=== PATIENT | male | born 1930 ===

== ENCOUNTER 2019-06-02 05:41 | Day surgery (SDC) | payer MEDICARE, BC ==
[~2019-06-02] VITALS: Ht 180.3 cm; Wt 99.8 kg
[2019-06-02] VITALS (12 sets, daily range): BP systolic 104–154; BP diastolic 50–85
[2019-06-02] MEDS ORDERED: ATENOLOL25 MG ORAL (06:36)
[2019-06-02] MEDS ORDERED: VITAMIN E100 UNI2 ORAL (06:36)
[2019-06-02] MEDS ORDERED: PRILOSEC OTC20 MG ORAL (06:36)
[2019-06-02] MEDS ORDERED: COSENTYX (150 MG/1 M SQ (06:36)
[2019-06-02] MEDS ORDERED: MULTIVITAMINS1 EAC2 ORAL (06:36)
[2019-06-02] MEDS ORDERED: COUMADIN5 MG ORAL (06:36)
[2019-06-02] MEDS ORDERED: ASPIR 8181 MG ORAL (06:36)
[2019-06-02] MEDS ORDERED: LOSARTAN POTASS25 M1 PO (06:36)
[2019-06-02] MEDS ORDERED: SIMVASTATIN20 MG ORAL (06:36)
[2019-06-02] MEDS ORDERED: Phenylephrine 10mg/ml Vial ONE (06:38)
[2019-06-02] MEDS ORDERED: Rocuronium Bromide 50mg/5ml Inj IV ONE (06:45)
[2019-06-02] MEDS ORDERED: Succinylcholine 20mg/ml 10ml vial ONE (06:45)
[2019-06-02] MEDS ORDERED: NeoSporin Gu Irrig 1ml Amp IRRIG ONE (06:48)
[2019-06-02] MEDS ORDERED: Ropivacaine 5mg/ml Vial 30ml INJ ONE ×2 (06:48→06:53)
[2019-06-02] MEDS ORDERED: Lidocaine 1% 10mg/ml/Epi 0.005mg/ml 30ml vial INJ ONE (06:48)
[2019-06-02] MEDS ORDERED: Bacitracin 50000 Units Vial ONE (06:48)
[2019-06-02] MEDS ORDERED: Lidocaine 1% MPF 10mg/ml 5ml ONE (06:50)
[2019-06-02] MEDS ORDERED: fentaNYL 100 mcg/2 mL IV ONE (06:57)
[2019-06-02] MEDS ORDERED: Tylenol #3 tab (300mg/30mg) ORAL PRN (07:00)
[2019-06-02] MEDS ORDERED: Neostigmine 1mg/ml 10ml Inj ONE (07:00)
[2019-06-02] MEDS ORDERED: LR 1000ml ONE (07:00)
[2019-06-02] MEDS ORDERED: D5 1/2NS 1,000 ML IV SCH (07:00)
[2019-06-02] MEDS ORDERED: HYDROmorphone 1mg/ml Carpuject SUBQ PRN (07:00)
[2019-06-02] MEDS ORDERED: Sterile Water Irrig 1000ml IRRIG ONE (07:00)
[2019-06-02] MEDS ORDERED: Propofol 200mg/20ml IV ONE (07:00)
[2019-06-02] MEDS ORDERED: HYDROcodone/Acetamin 5/325 tab ORAL PRN (07:00)
--- NOTE | 2019-06-02 07:05 | Pre-Procedure Note/Attestation ---
Pre-Procedure Note/Attestation Complete Prior to Procedure Planned Procedure: left Procedure Narrative: Left proximal humerus open reduction with internal fixation Indications for Procedure Pre-Operative Diagnosis: Left proximal humerus fracture Attestation I attest that I discussed the nature of the procedure; its benefits; risks and complications; and alternatives (and the risks and benefits of such alternatives ), prior to the procedure, with the patient (or the patient's legal roofing sales representative). I attest that, if there was a reasonable possibility of needing a blood transfusion, the patient (or the patient's legal roofing sales representative) was given the [facility] standardized written summary, pursuant to the Noe Anand Blood Safety Act ([place] Health and Safety Code # 1645, as amended). I attest that I re-evaluated the patient just prior to the surgery and that there has been no change in the patient's H&P, except as documented below: Minor Patino MD Jun 02, 2019 07:05
[2019-06-02] MEDS ORDERED: NS Irrig 1000ml IRRIG ONE (07:50)
[2019-06-02] MEDS ORDERED: LR 1000ml 1,000 ML IVLG SCH (08:33)
--- NOTE | 2019-06-02 08:33 | Anethesia Preoperative Eval ---
Anesthesia Pre-op PMH/ROS General Date of Evaluation: Jun 02, 2019 Time of Evaluation: 07:02 Anesthesiologist: Prasanna ASA Score: ASA 3 Mallampati Score Class I : Soft palate, uvula, fauces, pillars visible Class II: Soft palate, uvula, fauces visible Class III: Soft palate, base of uvula visible Class IV: Only hard plate visible Mallampati Classification: Class II Surgeon: Sukumar Diagnosis: L humerus Fx Surgical Procedure: ORIF of L humerus Fx Anesthesia History: none Social History: smoking - h/o Family History: no anesthesia problems Allergies: Coded Allergies: LATEX (Verified Allergy, Mild, itching , 06/02/19) SULFA (SULFONAMIDE ANTIBIOTICS) (Verified Allergy, Unknown, itching, ) Medications: see eMAR Patient NPO?: Yes Past Medical History Cardiovascular: Reports: HTN, CAD - stable, arrhythmia - AF ; Denies: [place], valve dz, other Pulmonary: Denies: asthma, COPD, ANAM, other Gastrointestinal/Genitourinary: Reports: GERD; Denies: CRI, ESRD, other Neurologic/Psychiatric: Reports: depression/anxiety; Denies: dementia, CVA, TIA, other Endocrine: Reports: hypothyroidism; Denies: DM, steroids, other HEENT: Denies: cataract (L), cataract (R), glaucoma, [place] (L), [place] (R), other Hematology/Immune: Reports: anemia - mild, bleeding disorder - anticoagulated off coumadin for 7 days; Denies: DVT, other Musculoskeletal/Integumentary: Reports: OA; Denies: RA, DJD, DDD, edema, other PMH Narrative: as above PSxH Narrative: coronary stents, cholecystectomy Anesthesia Pre-op Phys. Exam Physician Exam Last Vital Signs Date Time Temp Pulse Resp B/P (MAP) Pulse Ox O2 Delivery O2 Flow Rate FiO2 06/02/19 06:40 Room Air 06/02/19 06:11 98.0 60 18 147/85 97 Constitutional: NAD Neurologic: CN 2-12 intact Cardiovascular: RRR, no M/R/G, other - IIR Respiratory: CTA Gastrointestinal: S/NT/ND Airway Exam Mallampati Score: Class II MO: limited Neck: stiff ROM: limited Teeth: missing Dentures: no upper, no lower Anesthesia Pre-op A/P Labs Coagulation Test 06/02/19 06:10 Prothrombin Time 10.6 SEC (9.30-11.50) Prothromb Time International Ratio 1.0 (0.9-1.1) Activated Partial Thromboplast Time 24 SEC (23-33) Risk Assessment & Plan Assessment: ASA 3 Plan: GA with ETT, L brachial plexus block for postop pain control Status Change Before Surgery: No Pre-Antibiotics Drug: Ancef 1gr. Given Within 1 Hr of Incision: Yes Time Given: 08:02 Abram Mims MD Jun 02, 2019 08:32
[2019-06-02] MEDS ORDERED: Morphine Sulfate 10mg/ml Inj ONE (08:38)
[2019-06-02] MEDS ORDERED: Glycopyrrolate 0.2mg/ml 1ml Vial ONE ×2 (08:39→08:42)
[2019-06-02] MEDS ORDERED: Sodium Chloride 10ml vial INJ ONE (08:39)
[2019-06-02] MEDS ORDERED: Acetaminophen (Non formulary) 100 ML IV ONE (08:45)
[2019-06-02] MEDS ORDERED: DiphenhydrAMINE 50mg/ml Inj IVP PRN (08:45)
[2019-06-02] MEDS ORDERED: Ketorolac 30mg Inj IV PRN (08:45)
[2019-06-02] MEDS ORDERED: Hydromorphone 0.5mg/0.5ml inj IVP PRN (08:45)
--- NOTE | 2019-06-02 09:41 | Brief Operative Note ---
Immediate Post Operative Note Operative Note Pre-op Diagnosis: Left proximal humerus fracture Procedure: Left proximal humerus fracture ORIF Post-op Diagnosis: Left proximal humerus fracture Post-op Diagnosis: same as pre-op Findings: consistent w/pre-op dx studies Surgeon: Sukumar Anesthesia: general, regional Specimen: none Complications: none Condition: stable Fluids: 100 ml Estimated Blood Loss: minimal Drains: none Implant(s) used?: Yes Minor Patino MD Jun 02, 2019 09:40
--- NOTE | 2019-06-02 09:53 | Immediate Post-Op Evaluation ---
Immediate Post-Op Evalulation Immediate Post-Op Evalulation Procedure: ORIF of L humerus Fx. Date of Evaluation: Jun 02, 2019 Time of Evaluation: 09:52 IV Fluids: 1000 Blood Products: none Estimated Blood Loss: 100 Urinary Output: none Blood Pressure Systolic: 104 Blood Pressure Diastolic: 62 Pulse Rate: 72 Respiratory Rate: 20 O2 Sat by Pulse Oximetry: 98 Temperature (Fahrenheit): 97.4 Pain Score (1-10): 1 Nausea: No Vomiting: No Complications none Patient Status: reacts, patent, extubated, none Hydration Status: adequate Abram Mims MD Jun 02, 2019 09:53
--- NOTE | 2019-06-02 11:20 | 48 Hour Post Anesthesia Eval ---
Post Anesthesia Evaluation Procedure: ORIF of L humerus Fx. Date of Evaluation: Jun 02, 2019 Time of Evaluation: 11:19 Blood Pressure Systolic: 116 0: 72 Pulse Rate: 62 Respiratory Rate: 18 Temperature (Fahrenheit): 97.6 O2 Sat by Pulse Oximetry: 98 Airway: patent Nausea: No Vomiting: No Pain Intensity: 2 Hydration Status: adequate Cardiopulmonary Status: stable Mental Status/LOC: patient returned to baseline Follow-up Care/Observations: n/a Post-Anesthesia Complications: none Follow-up care needed: ready to discharge Abram Mims MD Jun 02, 2019 11:20
--- NOTE | 2019-06-02 12:12 | Diagnostic Imaging Report ---
Indication: left shoulder fracture. Imaging during ORIF. Findings: 5 fluoroscopic views of the left shoulder were obtained. Total fluoroscopic time 27 seconds. Intraoperative imaging showing a comminuted fracture of the humeral neck reduced by compression plate and several screws. IMPRESSION: Intraoperative imaging
--- NOTE | 2019-06-02 19:45 | Operative Note - Dictated ---
DATE OF OPERATION: 06/02/2019 SURGEON: Minor Patino M.D. HEAVY FORGING MACHINE OPERATOR: None. ANESTHESIA: General plus regional. COMPLICATIONS: None. ANTIBIOTICS: Ancef. PREOPERATIVE DIAGNOSIS: Left proximal humerus 3 part displaced fracture. POSTOPERATIVE DIAGNOSIS: Left proximal humerus 3 part displaced fracture. PROCEDURE PERFORMED: 1. Left proximal humerus open reduction internal fixation using [place] locking and unlocking periarticular proximal humerus plate. 2. Fluoroscopic image intensification for fracture reduction and hardware placement . BACKGROUND: The patient tripped and fell. He sustained the above injuries. All risks, benefits, and alternatives of surgical intervention were discussed in great detail. Risks included, but were not limited to, bleeding, infection, neurovascular injury, need for additional surgical intervention, failure of pain relief, arthrofibrosis, complications of anesthesia, blood clots, stroke, heart attack, and potentially . He understood these risks, amongst others including malunion, nonunion, and restricted range of motion, and consent was signed. PROCEDURE IN DETAIL: The patient was brought into the operating room and placed supine on the operating table. The left shoulder was correctly identified for surgical site and prepped and draped in standard sterile fashion. A deltopectoral incision was outlined and created using a 10 blade. Hemostasis was maintained using electrocautery. The deltopectoral interval was identified and the clavipectoral fascia incised. The cephalic vein was taken laterally and preserved. Once the fracture was clearly identified, residual hematoma was removed. The fracture was reduced under fluoroscopic imaging and an appropriate 3-hole proximal humerus precontoured locking and nonlocking plate was secured. Appropriate length screws were secured into position as well. Under fluoroscopic imaging, there was no intraarticular embarrassment. The fractures were well reduced and the hardware was placed appropriately. Copious irrigation was utilized and finger sweep revealed no retained foreign body or debris. The layers were closed using #1 Vicryl, 0 Vicryl, and 2-0 Vicryl. Monocryl was used in a subcuticular fashion. Steri-Strips were used over Mastisol. Dry sterile dressing was applied. A sling was fitted. There were no complications. I attest I performed the entire operation. He was transferred to recovery in good condition. Minor Patino M.D. DR: ERNIE JOB#: [id number] CC:
== END 2019-06-02 12:10 | disposition home or self-care (01) ==
LOC: SUR 05:41
DX: S42.202A Unspecified fracture of upper end of left humerus, initial encounter for closed fracture (principal); Z79.899 Other long term (current) drug therapy; Z91.040 Latex allergy status; Z88.2 Allergy status to sulfonamides; I48.2 Chronic atrial fibrillation; I10 Essential (primary) hypertension; I25.10 Atherosclerotic heart disease of native coronary artery without angina pectoris; I11.9 Hypertensive heart disease without heart failure; Z95.5 Presence of coronary angioplasty implant and graft; L40.9 Psoriasis, unspecified; W01.0XXA Fall on same level from slipping, tripping and stumbling without subsequent striking against object, initial encounter; Y92.9 Unspecified place or not applicable; Z87.891 Personal history of nicotine dependence; K21.9 Gastro-esophageal reflux disease without esophagitis; F41.9 Anxiety disorder, unspecified; F32.9 Major depressive disorder, single episode, unspecified; E03.9 Hypothyroidism, unspecified; Z90.49 Acquired absence of other specified parts of digestive tract
CPT/HCPCS: 23615; 36415; 73020; 76000; 85610; 85730; C1713; J0330; J0690; J1170; J1885; J2270; J2370; J2704; J2710; J2795; J3010; 94003; 94150